=== PATIENT | female | born 1965 | race Caucasian/White ===

== ENCOUNTER 2017-01-25 09:40 | Emergency (ER) | payer OTHER ==
[~2017-01-25] VITALS: Ht 167.6 cm; Wt 100.9 kg
[~2017-01-25 09:40] MED LIST: ALPR.25T PO; ASPI1TAB22 PO; ATEN25TA7 PO; CITA20TA PO; FLUO15OI TP; HYDR12.55 PO; HYDR1TAB69 PO; HYDR25TA4 PO; IBUP-1149 PO; K10 PO; LORA-302 PO; OXYC-176 PO; OXYC-284 PO; PRAM0.122 PO; ROB500 PO
[2017-01-25 09:44] VITALS: BP 207/129; PULSE 70; RESP 18; O2SAT 100
--- NOTE | 2017-01-25 10:01 | ED.REPORT ---
HPI-General Illness Date of Service Jan 25, 2017 ED Provider: Hever Chand DO Pt is a 51 year old female with a history of migraines, hyperlipidemia and HTN who presents to the ED complaining of intermittent elevated blood pressure onset 1 week ago. Pt c/o associated headache and chest pressure. She rates her headache as a 5/10, describing it as throbbing, not maximal in onset, not the worse headache of her life. Her chest pressure is not exacerbated with rest or activity. She states the chest pressure is chronic and has previously been treated with Xanax in the past. Pt reports that her blood pressure was 170/115 this morning, prompting her to take 40 mg of lisinopril. The pt has presented to 2x with her symptoms and she was prescribed medication of her HTN without relief. Nursing Notes Stated Complaint: HIGH BLOOD PRESSURE Chief Complaint: General Complaint Nursing Notes Reviewed: Yes Allergies: Coded Allergies: No Known Allergies (Unverified Allergy, Unknown, 12/03/14) Scheduled Alprazolam-Expunged Drug, Do Not Renew! (Alprazolam-Expunged Drug, Do Not Renew! ) 0.25 Mg Tablet 0.25 MG PO DAILYP Amlodipine (Amlodipine) 5 Mg Tablet 5 MG PO DAILY Atenolol-Expunged Drug, Do Not Renew! (Atenolol-Expunged Drug, Do Not Renew!) 25 Mg Tablet 12.5 MG PO DAILY Citalopram-Expunged Drug, Do Not Renew! (Citalopram-Expunged Drug, Do Not Renew! ) 20 Mg Tablet 20 MG PO DAILY Fluocinonide-Expunged Drug, Do Not Renew! (Lidex-Expunged Drug, Do Not Renew!) 15 Gm Oint..gm. 15 GM TP BID APPLY TOPICALLY TWICE A DAY TO AFFECTED AREA Hydrochlorothiazide (Hydrochlorothiazide) 12.5 Mg Tablet Unknown Dose PO DAILY Hydrochlorothiazide-Expunged, Do Not Renew! (Hydrochlorothiazide-Expunged, Do Not Renew!) 25 Mg Tablet 25 MG PO DAILY Hydrocod/APAP-Expunged, Do Not Renew! (Hydrocod/APAP 5/500-Expunged, Do Not Renew!) 1 Each Tablet 1 EACH PO PRN IBUPROFEN-Expunged Drug, Do Not Renew! (IBUPROFEN-Expunged Drug, Do Not Renew!) 600 Mg Tablet 600 MG PO PRNP FOR FEVER OR PAIN Methocarbamol-Expunged Drug, Do Not Renew! (Robaxin-Expunged Drug, Do Not Renew! ) 500 Mg Tablet 1-2 TAB PO QID Oxycodone/APAP-Expunged Drug, Do Not Renew! (Percocet 5/325-Expunged Drug, Do Not Renew!) 1 Each Tablet 1 TAB PO Q 4-6HRS PRN Potassium Chl-Expunged Drug, Do Not Renew! (I-SVY-Myoatapg Drug, Do Not Renew!) 10 Meq Tabsr 10 MEQ PO DAILY Pramipexole-Expunged Drug, Do Not Renew! (Mirapex-Expunged Drug, Do Not Renew!) 0.125 Mg Tablet 1-2 TAB PO HS Scheduled PRN Aspirin/Acetaminophen/Caffeine (Excedrin Migraine Caplet) 1 Each Tablet 1 EACH PO DIRECTED PRN PRN For Headache Lorazepam (Ativan) 0.5 Mg Tablet 0.5 MG PO HS PRN PRN For Insomnia Oxycodone HCl/Acetaminophen 5-325 (Percocet 5-325) 1 Each Tablet 1 EACH PO Q4 PRN PRN For Pain General Time Seen by MD: 10:00 Chief Complaint Other (Elevated blood pressure) Hx Obtained From: Patient Arrived By: Walk-in Sudden in Onset?: Yes Onset Occurred: Just prior to arrival Symptom Duration: Since onset Location: : Head Quality: Painful Radiation: : Does not radiate Severity: Current: Moderate Severity: Maximum: Moderate Recent Healthcare: Recent doctor visit Similar Sx Previous: No Past Medical History Past Medical History Migraines Reports: Hyperlipidemia, Hypertension Reports: Depression Past Surgical History None reported Smoking History Unknown if Ever Smoker Social History Alcohol Use: Denies alcohol use Drug Use: Denies drug use Ambulatory Status Independent Review of Systems + elevated blood pressure Full Review of Systems Constitutional: Denies: Fever Respiratory: Denies: Non-productive cough, Shortness of breath Cardiovascular: Reports: Chest pain Neurologic: Reports: Headache Complete sys rev & neg: except as marked. Physical Exam Vital Signs Vital Signs Date Time Temp Pulse Resp B/P Pulse Ox O2 Delivery O2 Flow Rate FiO2 01/25/17 11:29 18 160/81 Room Air 01/25/17 11:06 67 14 142/75 Room Air 01/25/17 10:26 71 17 164/86 96 Room Air 01/25/17 09:44 36.6 70 18 207/129 100 Room Air Initial VS: Reviewed Head / Eyes: Atraumatic, Normocephalic Neck: Supple, Full range of motion Respiratory: Breath sounds normal, Clear to auscultation, No respiratory distress Abdomen / GI: Soft, Non-tender Extremities: Vascular intact, Neuro intact Skin: Warm, Dry, No cyanosis Neurologic: Alert, Oriented, Nonfocal Psychiatric: Mood/affect normal, Behavior normal General/Constitutional: Awake, Alert Cardiovascular: Heart rate NL, Regular rhythm, Heart sounds NL Hypertensive Interpretation & Diagnostics Lab Results Interpretation Result Diagram: 01/25/17 1115 01/25/17 1115 Test 01/25/17 11:15 White Blood Count 5.4th/mm3 (3.8-10.1) Red Blood Count 4.44mil/mm3 (3.90-5.20) Hemoglobin 13.1g/dL (12.0-15.6) Hematocrit 38.8% (35.0-46.0) Mean Corpuscular Volume 87.4fL (81-100) Mean Corpuscular Hemoglobin 29.5pg (27.0-35.0) Mean Corpuscular Hemoglobin Concent 33.8% (32.0-37.0) Red Cell Distribution Width 12.5% (12.3-15.4) Platelet Count 276bil/L (150-400) Neutrophils (%) (Auto) 65.6% (40-74) Lymphocytes (%) (Auto) 25.3% (14-46) Monocytes (%) (Auto) 6.5% (4-12) Eosinophils (%) (Auto) 1.8% (0-5) Basophils (%) (Auto) 0.6% (0-3) Sodium Level 140mEq/L (134-144) Potassium Level 4.1mEq/L (3.5-5.2) Chloride Level 101mEq/L (97-108) Carbon Dioxide Level 21mmol/L (18-29) Blood Urea Nitrogen 16mg/dL (6-24) Creatinine 0.58mg/dL (0.57-1.00) Estimat Glomerular Filtration Rate 156mL/min (>59) Glucose Level 96mg/dL (60-99) Calcium Level 9.3mg/dL (8.5-10.1) Magnesium Level 1.9mg/dL (1.6-2.6) Total Bilirubin 0.3mg/dL (0.0-1.2) Aspartate Amino Transf (AST/SGOT) 20U/L (0-50) Alanine Aminotransferase (ALT/SGPT) 16U/L (0-32) Alkaline Phosphatase 55U/L (25-150) Troponin T 0.010ug/L (0.0-0.011) Total Protein 7.4g/dL (6.4-8.4) Albumin 4.3g/dL (3.4-5.0) ECG Interpretation Time: 10:04 Interpreted by: ED physician Normal ECG Interpretation: Normal ECG w/ rate of... (71) X-Ray Chest Interpretation Chest Xray Interpretation: IMPRESSION: No acute disease Dictated by: Jose Luis Saxena M.D. on 01/25/2017 at 9:42 View: Portable, 1 view Interpretation / Wet Read by: Interpret - Radiologist CT Head Interpretation IMPRESSION: No acute intracranial abnormalities. Dictated by: Vladimir Ayers M.D. on 01/25/2017 at 11:44 Study: Head CT no contrast Interpretation / Wet Read by: Interpret - Radiologist Re-Eval/Medical Decision Med Decision/Clinical Course Patient presents with headache and chest pressure as well as associated hypertension. She does have chronic migraine headaches and states that this is only 5 out of 10, not maximal in onset and not the worse headache she has ever experienced. She also has chronic chest pressure which has been previously treated with Xanax in the past. Her blood pressure is controlled with oral amlodipine and is nearly down to a normal range. No findings of acute end organ damage or hypertensive emergency. Patient is feeling better and will be discharged to follow-up with her primary care doctor for further delineation as to the cause for her hypertension. Return and follow-up precautions given as well as a prescription for 5 mg amlodipine daily Source of Hx: Old records Time of Eval: 11:15 Re-Evaluation/Progress Note: Pt rechecked. Pt is resting comfortably. All questions addressed. Time of Eval: 12:33 Re-Evaluation/Progress Note: Pt rechecked. Informed pt of results and plan for discharge. Pt understands and agrees with plan for discharge. F/U instructions and RTER warnings given. All questions addressed. Counseled Regarding: Diagnosis, Lab results, Need for follow-up, When/why to return to ED Discharge & Departure Primary Impression: Headache Headache type: unspecified Headache chronicity pattern: unspecified pattern Intractability: intractable Qualified Code: R51 - Headache Additional Impression: Hypertension Disposition: Home Discharge Condition All VS Reviewed: Yes Condition: Stable Patient Instructions: Acute Headache (ED), Hypertension (ED) Additional Instructions: Your x-ray, CT, ECG, and labs are all reassuring. Take the Amlodipine 1x per day. Continue taking you other medications. Call your primary care provider today for a follow up appointment this week. Let her know about your Emergency Department visit to discuss further workup of the cause for your elevated blood pressure. Return to the Emergency Department for any new or concerning symptoms. Referrals: Yue Yu MD (PCP) Scribe Attestation Portions of this note were transcribed by Connie Cervantes. I, Dr. Chand personally performed the history, physical exam and medical decision-making; I reviewed and confirmed the accuracy of the information in the transcribed note. Signed by: Drake Dubois, 01/25/17. copies to: Yue Yu MD, Timothy S DO Jan 25, 2017 10:01 Connie Dale Jan 25, 2017 10:09
[2017-01-25] MEDS ORDERED: Labetalol 5 mg/mL 20 mL Inj IVPUSH ONE (10:10)
[2017-01-25 10:26] VITALS: BP 164/86; PULSE 71; RESP 17; O2SAT 96
--- NOTE | 2017-01-25 10:44 | DRSVH ---
PROCEDURE: X-RAY CHEST ONE VIEW, PORTABLE ([id number]) INDICATIONS: CHEST PAIN TECHNIQUE: One view of the chest was acquired. COMPARISON: [facility], , CHEST 1VW (PORTABLE), 08/03/2010, 18:52. FINDINGS: Surgical changes and devices: None. Lungs and pleura: No pleural effusions or pneumothorax. Lungs are clear. Mediastinum: Mediastinal contours appear normal. Heart size is normal. Bones and chest wall: No suspicious bony lesions. Overlying soft tissues appear unremarkable. IMPRESSION: No acute disease Dictated by: Jose Luis Saxena M.D. on 01/25/2017 at 9:42 Approved by: Jose Luis Saxena M.D. on 01/25/2017 at 9:42
[2017-01-25 11:06] VITALS: BP 142/75; PULSE 67; RESP 14
[2017-01-25 11:29] VITALS: BP 160/81; RESP 18
[2017-01-25 11:30] LABS: BASOPHILS % (AUTO) 0.6 % (0-3); EOSINOPHILS % (AUTO) 1.8 % (0-5); MONOCYTES % (AUTO) 6.5 % (4-12); Mean Corpuscular Hemoglobin 29.5 pg (27.0-35.0); Mean Corpuscular Volume 87.4 fL (81-100); NEUTROPHILS % (AUTO) 65.6 % (40-74); Platelet Count 276 bil/L (150-400)
[2017-01-25 11:45] LABS: TROPONIN T 0.01 ug/L (0.0-0.011)
--- NOTE | 2017-01-25 11:48 | DRSVH ---
PROCEDURE: CT BRAIN WITHOUT CONTRAST ([id number]) INDICATIONS: 51 year-old female with headaches. TECHNIQUE: Noncontrast 4.5 mm thick angled axial sections acquired from the foramen magnum to the vertex, with c oronal reformats. COMPARISON: None. FINDINGS: Image quality: Excellent. CSF spaces: Basal cisterns are patent. No extra-axial fluid collections. Ventricles are normal in size and shape. Brain: No midline shift. No intracranial masses or hemorrhage. Olivas-white matter interface is norm al. Skull and face: Calvarium and visualized facial bones are intact, without suspicious lesions. Sinuses: Visualized sinuses and mastoids are clear. IMPRESSION: No acute intracranial abnormalities. Dictated by: Vladimir Ayers M.D. on 01/25/2017 at 11:44 Approved by: Vladimir Ayers M.D. on 01/25/2017 at 11:46
[2017-01-25 11:56] LABS: Magnesium 1.9 mg/dL (1.6-2.6)
[2017-01-25] MEDS ORDERED: AMLO5TAB2 PO (12:38)
[2017-01-25 12:40] VITALS: BP 151/83; PULSE 73; RESP 15; O2SAT 97
[2017-01-25 13:02] VITALS: BP 151/83; PULSE 73; RESP 15; O2SAT 97
== END 2017-01-25 13:03 | disposition home or self-care (01) ==
LOC: SED 09:40
DX: I10 Essential (primary) hypertension (principal); R51 Headache; R07.89 Other chest pain; F32.9 Major depressive disorder, single episode, unspecified; E78.5 Hyperlipidemia, unspecified
CPT/HCPCS: 36415; 70450; 71010; 80053; 83735; 83880; 84484; 85025; 93005; 96374; 96375; 99285; J2060